=== PATIENT | male | born 1945 | race Caucasian/White ===

== ENCOUNTER 2019-12-11 07:14 | Outpatient (CLI) | payer MEDICARE, OTHER ==
--- NOTE | 2019-12-11 08:37 | XRAY Report ---
PROCEDURE: Hip w/Pelvis 2-3V RT INDICATIONS: RT HIP PAIN, RT SIDE SCIATICA TECHNIQUE: AP pelvis with lateral view(s) of the bilateral hip(s). COMPARISON: None. FINDINGS: Bones: No fractures or dislocations. Pelvic ring appears intact. No suspicious bony lesions. Mode rate bilateral degenerative hip joint space narrowing. Minimal periarticular osteophytes are present. No erosions. Degenerative changes are present within the lower lumbar spine. Soft tissues: The visualized bowel gas pattern is normal. No suspicious soft tissue calcifications. IMPRESSION: Degenerative changes suggestive osteoarthritis. Reviewed by: Hazel Hanley MD on 12/11/2019 8:36 AM PDT Approved by: Hazel Hanley MD on 12/11/2019 8:36 AM PDT Station ID: [id number]
--- NOTE | 2019-12-11 15:13 | XRAY Report ---
PROCEDURE: Lumbar Spine 2 View INDICATIONS: RT HIP PAIN, RT SIDE SCIATICA TECHNIQUE: 2 views of the lumbar spine were acquired. COMPARISON: The FINDINGS: Bones: 5 [id number] vertebrae are present. There is trace anterolisthesis of L4 on L5, trace r etrolisthesis of L2 on L3. There is minimal scoliotic curvature of the lower lumbar spine with apex a t L3. Severe foraminal narrowing is noted at L5-S1, moderate L4-5. Moderate disc space narrowing is n oted L3-4, L4-5, L5-S1. Multilevel anterior nonbridging osteophytes are present. No vertebral body co mpression fractures. No suspicious bony lesions. Soft tissues: Overlying bowel gas pattern is normal. No suspicious soft tissue calcifications. IMPRESSION: Degenerative changes as above most notable at L4-5 and L5-S1. Reviewed by: Hazel Hanley MD on 12/11/2019 3:12 PM PDT Approved by: Hazel Hanley MD on 12/11/2019 3:12 PM PDT Station ID: [id number]
== END 2019-12-11 07:15 | disposition home or self-care (01) ==
LOC: DI 07:14
PROVIDERS: ATTEND Physician Assistant
DX: M51.17 Intervertebral disc disorders with radiculopathy, lumbosacral region (principal); M16.11 Unilateral primary osteoarthritis, right hip
CPT/HCPCS: 72100

== ENCOUNTER 2023-03-21 07:47 | Outpatient (CLI) | payer MEDICARE, OTHER ==
[2023-03-21 14:40] LABS: BASOPHILS # (AUTO) 0.1 10^3/uL (0.0-0.1); BASOPHILS % (AUTO) 1.1 %; EOSINOPHILS # (AUTO) 0.5 10^3/uL (0.0-0.7); EOSINOPHILS % (AUTO) 8.9 %; HCT - HEMATOCRIT 40.5 % (42.0-52.0); HGB - HEMOGLOBIN 13.1 g/dL (14.0-18.0); LYMPHOCYTES # (AUTO) 2.2 10^3/uL (1.5-3.5); LYMPHOCYTES % (AUTO) 41.4 %; MEAN CORPUSCULAR HEMOGLOBIN 30.8 pg (27.0-31.0); MEAN CORPUSCULAR HGB CONC 32.3 g/dL (32.0-36.0); MEAN CORPUSCULAR VOLUME 95.3 fL (80.0-94.0); MEAN PLATELET VOLUME 11.8 fL (7.4-11.4); MONOCYTES # (AUTO) 0.4 10^3/uL (0.0-1.0); MONOCYTES % (AUTO) 8.3 %; NEUTROPHILS # (AUTO) 2.1 10^3/uL (1.5-6.6); NEUTROPHILS % (AUTO) 40.1 %; PLT - PLATELET COUNT 176 10^3/uL (130-450); RED BLOOD COUNT 4.25 10^6/uL (4.70-6.10); RED CELL DISTRIBUTION WIDTH 13.2 % (12.0-15.0); WHITE BLOOD COUNT 5.3 x10^3/uL (4.8-10.8)
[2023-03-21 15:19] LABS: ALBUMIN 4.3 g/dL (3.2-5.5); ALBUMIN/GLOBULIN RATIO 1.6 (1.0-2.2); ALKALINE PHOSPHATASE 66 IU/L (42-121); ALT ALANINE AMINOTRANSFERASE 15 IU/L (10-60); AST ASPARTATE AMINOTRANSFERASE 16 IU/L (10-42); BILIRUBIN,TOTAL 0.9 mg/dL (0.2-1.0); BUN - BLOOD UREA NITROGEN 16 mg/dL (6-20); CALCIUM 9.2 mg/dL (8.5-10.3); CARBON DIOXIDE - CO2 32 mmol/L (21-32); CHLORIDE 104 mmol/L (101-111); CRP - C-REACTIVE PROTEIN < 0.5 mg/dL (<0.5); GFR - MDRD 73 (>89); GLUCOSE 92 mg/dL (74-104); POTASSIUM 4.3 mmol/L (3.5-4.5); SODIUM 139 mmol/L (135-145)
[2023-03-21 21:00] LABS: ESTIMATED AVERAGE GLUCOSE 88 mg/dL (70-100); HEMOGLOBIN A1c% 4.7 % (4.27-6.07)
== END 2023-03-21 07:48 | disposition home or self-care (01) ==
LOC: LAB.S 07:47
PROVIDERS: ATTEND Physician Assistant Medical
DX: Z13.9 Encounter for screening, unspecified (principal)
CPT/HCPCS: 36415; 80053; 83036; 84153; 85025; 85651; 86140